=== PATIENT | female | born 1995 | race Two or more races ===

== ENCOUNTER 2018-11-28 14:41 | Emergency (ER) | payer SELFPAY ==
[~2018-11-28] VITALS: Ht 165.1 cm; Wt 54.4 kg
[2018-11-28 15:02] VITALS: BP 120/81
[2018-11-28] MEDS ORDERED: IBUPROFEN 600 MG TABLET PO ONE ×2 (15:42→16:00)
== END 2018-11-28 17:24 | disposition home or self-care (01) ==
LOC: ER 14:43
DX: S62.316A Displaced fracture of base of fifth metacarpal bone, right hand, initial encounter for closed fracture (principal); W18.39XA Other fall on same level, initial encounter; Y93.51 Activity, roller skating (inline) and skateboarding; Y92.331 Roller skating rink as the place of occurrence of the external cause; Y99.8 Other external cause status
CPT/HCPCS: 73130-TC